=== PATIENT | female | born 1965 | race African-American/Black ===

== ENCOUNTER 2021-07-26 12:44 | Outpatient (CLI) | payer OTHER | END 2021-07-26 12:45 | disposition home or self-care (01) | LOC: CSHCP 12:44 | PROVIDERS: ATTEND Family Medicine | DX: R06.00 Dyspnea, unspecified (principal); Z87.09 Personal history of other diseases of the respiratory system; R94.2 Abnormal results of pulmonary function studies | CPT/HCPCS: 94060; 94726; 94729; 94760 ==

== ENCOUNTER 2022-02-06 09:41 | Outpatient (CLI) | payer OTHER | END 2022-02-06 09:42 | disposition home or self-care (01) | LOC: CSHCP 09:41 | PROVIDERS: ATTEND Internal Medicine Pulmonary Disease | DX: R06.02 Shortness of breath (principal); R94.2 Abnormal results of pulmonary function studies | CPT/HCPCS: 94010; 94726; 94729; 94760 ==